=== PATIENT | female | born 1975 | race Caucasian/White ===

== ENCOUNTER → 2019-01-09 10:13 | Outpatient (CLI) | payer OTHER, SELFPAY ==
[2019-01-09 10:42] LABS: Basophils # 0.1 K/mm3 (0-0.2); Basophils % 0.7 % (0.1-2.0); Eosinophils % 0.4 % (0.1-12.0); Hematocrit 40.5 % (37.0-47.0); Hemoglobin 13.5 g/dL (12.2-16.2); Lymphocytes # 1.8 K/mm3 (0.7-4.5); Lymphocytes % 22.8 % (10-50); Mean Corpuscular HGB Conc 33.3 g/dL (31.8-35.4); Mean Corpuscular Hemoglobin 30.3 pg (27.0-31.2); Mean Corpuscular Volume 90.9 fl (81-99); Mean Platelet Volume 7.8 fl (7.4-10.4); Monocytes # 0.4 K/mm3 (0.1-1.0); Monocytes % 4.6 % (1.7-9.3); Neutrophils # 5.7 K/mm3 (1.8-7.8); Neutrophils % 71.4 % (37.0-80.0); Platelet Count 379 K/mm3 (142-424); Red Blood Count 4.46 M/mm3 (4.20-5.40); Red Cell Distribution Width 13.2 % (11.5-17.5); White Blood Count 7.9 K/mm3 (4.8-10.8)
[2019-01-09 11:10] LABS: Alanine Aminotransferase 19 U/L (12-78); Albumin Level 4.1 gm/dL (3.4-5.0); Albumin/Globulin Ratio 1.1 (1.1-1.8); Alkaline Phosphatase 54 U/L (46-116); Anion Gap 13.1 mEq/L (5-15); Aspartate Amino Transferase 10 U/L (15-37); Bilirubin,Total 0.5 mg/dL (0.2-1.0); Blood Urea Nitrogen 6 mg/dL (7-18); Carbon Dioxide 27 mmol/L (21.0-32.0); Chloride 104 mmol/L (98-107); Creatine Kinase 33 U/L (26-192); Creatinine,Serum 0.67 mg/dL (0.55-1.02); Estimated Glomerular Filt Rate 95 ml/min (>60); GFR (African American) 115 ML/MIN (>60); Globulin 3.8 gm/dl (1.3-3.2); Glucose 91 mg/dL (74-106); Potassium 4.1 mmoL/L (3.5-5.1); Sodium 140 mmol/L (136-145); Thyroid Stimulating Hormone 3.03 uIU/ml (0.358-3.740); Total Protein,Serum 7.9 gm/dL (6.4-8.2); Troponin I < 0.02 ng/ml (0.00-0.06)
[2019-01-09 11:14] LABS: CKMB Relative Index 1.5 U/L (0-4.0); Creatine Kinase MB < 0.5 ng/ml (0.0-3.6)
== END ==
PROVIDERS: PCP Family Medicine; Visit Provider Physician Assistant
DX: R07.9 Chest pain, unspecified (principal)
CPT/HCPCS: 36415; 80053; 82550; 82553; 84443; 84484; 85025; 93005; 93306

== ENCOUNTER → 2020-07-14 10:23 | Outpatient (CLI) | payer OTHER, SELFPAY ==
--- NOTE | 2020-07-14 10:29 | XR_ITS ---
PROCEDURE: XR SHOULDER RT MIN 2V CLINICAL INDICATION: RT SHOULDER PAIN COMPARISON: No exams were available for comparison FINDINGS: No fracture or dislocation. No lytic or blastic change. There is normal mineralization. The joint spaces are well-preserved. No significant degenerative/arthritic changes. No erosive changes evident. Other findings:None. IMPRESSION: No acute findings. Dictated by: Triston Garnett MD 07/14/2020 11:27 Triston Garnett MD in [place] 07/14/2020 11:27
--- NOTE | 2020-07-14 10:29 | XR_ITS ---
PROCEDURE: XR ELBOW RT MIN 3V CLINICAL INDICATION: RT ELBOW PAIN COMPARISON: No exams were available for comparison FINDINGS: No fracture or dislocation. No lytic or blastic change. There is normal mineralization. The joint spaces are well-preserved. No significant degenerative/arthritic changes. No erosive changes evident. Other findings:None. IMPRESSION: No acute findings. Dictated by: Triston Garnett MD 07/14/2020 11:27 Triston Garnett MD in [place] 07/14/2020 11:27
== END ==
PROVIDERS: PCP Family Medicine; Visit Provider Nurse Practitioner Family
DX: M25.511 Pain in right shoulder (principal); M25.521 Pain in right elbow
CPT/HCPCS: 73030; 73080

== ENCOUNTER → 2020-08-04 10:55 | Outpatient (CLI) | payer OTHER, SELFPAY ==
--- NOTE | 2020-08-04 10:58 | MR_ITS ---
PROCEDURE: MR SHOULDER RT WO CON CLINICAL INDICATION: RIGHT SHOULDER PAIN pt has been to physical therapy. pain when raising arm above head. ni injury. [id number]. weakness in arm. prior x-ray 07-14-20 COMPARISON: CR XR SHOULDER RT MIN 2V from 07/14/2020 TECHNIQUE: Routine multiplanar multi echo sequences are performed without gadolinium enhancement. FINDINGS: There is mild subacromial stenosis of 5 mm. No significant hypertrophy of the acromioclavicular joint. No evidence of rotator cuff tear. There is slight increased T2 signal the supraspinatus tendon distally which may be due to mild tendinopathy/tendinosis. The supraspinatus and infraspinatus are otherwise unremarkable as is the subscapularis and teres minor tendon. No obvious labral tear. The bicipital tendon is in place. There is some minimal subcortical increased T2 signal involving the humeral head posteriorly suggesting early subchondral cystic change. IMPRESSION: Mild subacromial stenosis with mild tendinopathy/tendinosis of the supraspinatus tendon. No evidence of rotator cuff tear or other significant anomaly. Suspect early subchondral cystic change in the humeral head posteriorly Dictated by: Triston Garnett MD 08/05/2020 12:35 Triston Garnett MD in [place] 08/05/2020 12:35
== END ==
PROVIDERS: PCP Family Medicine; Visit Provider Nurse Practitioner Family
DX: M25.511 Pain in right shoulder (principal)
CPT/HCPCS: 73221

== ENCOUNTER 2020-08-25 11:00 | Outpatient (RCR) | payer OTHER, SELFPAY ==
--- NOTE | 2020-07-26 16:08 | HMH.OTOPEV ---
OT Inpatient Evaluation Rehab OT Outpatient Eval Start: 07/26/20 15:45 Freq: Status: Active Protocol: Document 07/26/20 15:45 RMARSHALL (Rec: 07/26/20 15:59 RMARSHALL [id number]) Electronically Signed By Bc Sullivan OT 07/26/20 15:45 Outpatient Therapy Subjective History Subjective History Pt is a 45 year old female who reports to therapy for initial evaluation to right shoulder and elbow. Pt reports her shoulder and elbow began huritng her ~3 weeks ago. She does not recall a specific injury causing pain at both joints. Pt's AROM and strength are declined at right shoulder and special tests indicate possible shoulder impingement. Pt's AROM at elbow are WFL, but strength is declined. Pt does have palpation tenderness consistent with lateral epicondylitis. Pt is left hand dominant. Pt will continue to be seen twice a week in order to address all right UE deficits. STG Shoulder AROM Flex: 140 degrees Abd: 130 degrees ER: 80 degrees IR: 80 degrees Elbow AROM Sup: 75 degrees LTG Shoulder AROM Flex: 150 degrees Abd: 150 degrees ER: 90 degrees IR: 90 degrees Elbow Sup: 90 degrees Chief Complaint Pain,Stiff,Weakness,Decreased [employer]nerability Analyst Strength Symptom Type Ache,Throb,Sharp,Dull,Stabbing Symptoms Relieved By Rest/Positioning Symptoms Aggravated By Physical Activity,Twisting, Lifting Prior Functional Limitations None Current Functional Limitations Reaching,Lifting,Housework, Desk Work/Reading,Sleeping, Recreation Activity Symptom Description Constant but Variable Level of pain today (
== END 2020-08-25 11:55 | disposition home or self-care (01) ==
LOC: OT 11:00
PROVIDERS: Visit Provider Nurse Practitioner Family
DX: M25.511 Pain in right shoulder; M25.521 Pain in right elbow
CPT/HCPCS: 97014; 97033; 97035; 97110; 97140; 97165; G0283

== ENCOUNTER → 2021-08-21 19:02 | Outpatient (CLI) | payer OTHER, SELFPAY ==
--- NOTE | 2021-08-23 15:02 | PC.NURSE ---
pt. notified of positive result.
== END ==
PROVIDERS: Visit Provider Nurse Practitioner Family
DX: U07.1 COVID-19 (principal)
CPT/HCPCS: C9803; U0003; U0005

== ENCOUNTER 2023-01-30 14:08 | Emergency (ER) | payer BC, SELFPAY ==
--- NOTE | 2023-01-30 14:02 | ECG_ITS ---
APPROVED REPORT Exam: Resting ECG HR:73 bpm ECG Measurements Heart Rate 73 AXES IA 142 P 53 QRSd 85 QRS 60 QT 391 T 60 QTc 417 Conclusion SINUS RHYTHM LOW QRS VOLTAGE IN PRECORDIAL LEADS [QRS DEFLECTION < 1.0 mV IN CHEST LEADS] BORDERLINE ECG UNCONFIRMED REPORT Electronically signed by : Apolinar Davis MD 01/30/2023 22:02:38
--- NOTE | 2023-01-30 14:11 | XR_ITS ---
FINAL REPORT CLINICAL HISTORY: chest pain, pain between shoulder blades COMPARISON: 12/13/2019 FINDINGS: There is no evidence of effusion or other pleural disease. The mediastinum has a normal appearance. The cardiac silhouette is unremarkable. IMPRESSION: Unremarkable chest exam. Reviewed, Interpreted and Dictated by Vijay Schaffer MD Transcribed by Kelly Bazzi Authenticated and [facility]
--- NOTE | 2023-01-30 14:12 | CT_ITS ---
FINAL REPORT TECHNIQUE: Thin section axial CT with contrast with multiplanar reconstruction CLINICAL HISTORY: chest pain radiating to back FINDINGS: Pulmonary vessels enhance in a grossly normal fashion without evidence of embolism. Thoracic aorta shows no dissection or aneurysm. The great vessel origins are widely patent. No pulmonary mass or infiltrate is present. There is no significant pleural effusion. There is no significant pericardial effusion. No mediastinal or hilar adenopathy is present. IMPRESSION: 1. No evidence of pulmonary embolism Reviewed, Interpreted and Dictated by Vijay Schaffer MD Transcribed by Kelly Bazzi Authenticated and [facility]
[2023-01-30 14:14] VITALS: BP 132/67; PULSE 77; RESP 18; TEMP 36.8; O2SAT 99; BMI 27.4
[2023-01-30 14:31] LABS: Basophils # 0.1 K/mm3 (0-0.2); Basophils % 0.9 % (0.1-2.0); Eosinophils # 0.1 K/mm3 (0.0-0.4); Hemoglobin 14.3 g/dL (12.2-16.2); Lymphocytes # 2.6 K/mm3 (0.7-4.5); Lymphocytes % 32.3 % (10-50); Mean Corpuscular HGB Conc 32.4 g/dL (31.8-35.4); Mean Corpuscular Hemoglobin 30.4 pg (27.0-31.2); Mean Corpuscular Volume 93.7 fl (81-99); Mean Platelet Volume 8.6 fl (7.4-10.4); Monocytes # 0.5 K/mm3 (0.1-1.0); Monocytes % 5.8 % (1.7-9.3); Neutrophils # 4.8 K/mm3 (1.8-7.8); Platelet Count 405 K/mm3 (142-424); Red Blood Count 4.69 M/mm3 (4.20-5.40); Red Cell Distribution Width 13.1 % (11.5-17.5); White Blood Count 7.9 K/mm3 (4.8-10.8)
--- NOTE | 2023-01-30 14:44 | HMH.EDGENADL ---
Discharge Plan Disposition Patient Disposition: Home, Self-Care Condition: Good Prescriptions Prescriptions: No Action cholecalciferol (vitamin D3) 4,000 unit capsule 4,000 unit PO DAILY cyanocobalamin (vitamin B-12) [Vitamin B-12] 1,000 mcg tablet 1,000 mcg PO DAILY prednisone 20 mg tablet 20 mg PO BID 5 Days Qty: 10 0RF azithromycin 250 mg tablet 250 mg PO DIRECTED Qty: 6 0RF Rx Instructions: Take two (2) tablets on day #1, then one (1) tablet day #2 thru #5 Referrals Follow up/Referrals: Provider,Referral, MD [Referring] - See instructions Activity Restrictions/Add. Instructions Additional Instructions/Restrictions: You were evaluated in the emergency department today. Please follow-up with your primary care provider over the next 48 hours. Return to the emergency department for any new or worsening symptoms. Take Tylenol and ibuprofen at home as needed for pain. Clinical Impressions Clinical Impression: Back pain Qualifiers: Back pain location: thoracic back pain Chronicity: acute Back pain laterality: bilateral Qualified Code(s): M54.6 - Pain in thoracic spine Chest pain Qualifiers: Chest pain type: unspecified Qualified Code(s): R07.9 - Chest pain, unspecified Stand Alone Forms Stand Alone Forms: Work/School Release Instructions Patient Instructions: DI for Atypical Chest Pain, DI for Thoracic Back Pain Discharge ED Provider: Mayuri Jarrell General Adult HPI General Chief complaint: Chest Pain Stated complaint: chest pain Time Seen by Provider: 01/30/23 14:11 Mode of Arrival: Wheelchair Source of Information: Patient Limitations: No Limitations Description of Symptoms (Recalled from ER Triage Doc. by RN): pt comes in with c/o chest pain that comes and goes, began last night. pt reports that she does have pain in between shoulder blades, and generalized rib cage. shoulder blade and rib cage pain are constant. History of Present Illness HPI narrative: This patient is a 47-year-old female who has extensive smoking history and chronic cough presenting to the emergency department for evaluation with concern for chest pain that radiates to her back between her shoulder blades. She states that it is worse with coughing. It is relieved with sitting forward. She states that she is experiencing like this in the past and was told it is costochondritis. Her pain has been there for 48 hours now with no improvement. Given this, she came in for further evaluation. No fevers, chills, shortness of breath, abdominal pain, nausea, vomiting, changes in bowel movements, numbness, tingling, or other concerns. She does note that she feels lightheaded on review of systems. Related Data Home Medications Medication Instructions Recorded Confirmed cholecalciferol (vitamin D3) 100 4,000 unit PO DAILY Supplement 06/25/18 12/13/19 mcg (4,000 unit) capsule cyanocobalamin (vitamin B-12) 1,000 mcg PO DAILY Supplement 06/25/18 12/13/19 1,000 mcg tablet (Vitamin B-12) Previous Rx's Medication Instructions Recorded prednisone 20 mg tablet 20 mg PO BID 5 days #10 tabs 08/21/21 azithromycin 250 mg tablet 250 mg PO DIRECTED #6 tabs 10/11/21 Allergies Allergy/AdvReac Type Severity Reaction Status Date / Time Penicillins [PENICILLINS] Allergy Unknown Verified 12/13/19 13:32 [facility] Disclaimer: The information contained in this section may have been updated after the patient was seen, as this information can be updated by other users. Social History Smoking Status: Current every day smoker alcohol intake: never current occupational status: employed Travel in the last 8 weeks: None ROS Obtained: Yes All systems reviewed & no additional complaints except as documented 14 point review of systems obtained and negative except as mentioned in HPI. Physical Exam General General appearance: alert and in no debo
[2023-01-30 15:00] VITALS: BP 103/75; PULSE 74; RESP 14; O2SAT 97
--- NOTE | 2023-01-30 15:27 | PC.NURSE ---
chest CTA is locked per medical administrative technician
[2023-01-30 15:28] LABS: Chloride 102 mmol/L (98-107); Sodium 140 mmol/L (136-145)
[2023-01-30 15:30] VITALS: BP 103/67; PULSE 69; O2SAT 97
[2023-01-30 15:31] LABS: Alanine Aminotransferase 21 U/L (12-78); Albumin Level 4.5 g/dl (3.5-5.0); Albumin/Globulin Ratio 1.4 (1.1-1.8); Alkaline Phosphatase 70 U/L (38-126); Aspartate Amino Transferase 29 U/L (14-36); Bilirubin,Total 0.4 mg/dl (0.2-1.3); Blood Urea Nitrogen 5 mg/dl (7-17); Carbon Dioxide 28 mmol/L (22.0-30.0); Creatinine Clearance Estimated 111 mL/min (50-200); Estimated Glomerular Filt Rate 89 ml/min (>60); GFR (African American) 108 ML/MIN (>60); Globulin 3.3 g/dL (1.3-3.2); Total Protein,Serum 7.8 g/dl (6.3-8.2)
[2023-01-30 15:32] LABS: Calcium 9.3 mg/dl (8.4-10.2); Glucose 91 mg/dl (74-100)
[2023-01-30 15:52] LABS: Troponin I < 0.01 ng/ml (0.00-0.034)
[2023-01-30 16:00] VITALS: BP 112/67; PULSE 70; O2SAT 98
--- NOTE | 2023-01-30 16:09 | PC.NURSE ---
rounded on pt no complaints at this time, family at bs
[2023-01-30 16:55] LABS: Troponin I < 0.01 ng/ml (0.00-0.034)
[2023-01-30 17:20] VITALS: BP 112/67; PULSE 70; RESP 17; TEMP 36.7
== END 2023-01-30 17:28 | disposition home or self-care (01) ==
PROVIDERS: Emergency Provider Emergency Medicine; PCP Family Medicine
DX: R07.9 Chest pain, unspecified (principal); M54.6 Pain in thoracic spine; F17.200 Nicotine dependence, unspecified, uncomplicated
CPT/HCPCS: 71046; 71275; 80053; 84484; 85025; 93005; 96374; 99285; Q9967

== ENCOUNTER → 2023-08-27 14:00 | Outpatient (CLI) | payer BC, SELFPAY ==
--- NOTE | 2023-08-27 14:10 | MM_ITS ---
PROCEDURE INFORMATION: Exam: Bilateral Screening 3D Mammography Exam date and time: 08/27/2023 2:01 PM Age: 48 years old Clinical indication: Screening examination TECHNIQUE: Imaging protocol: Bilateral Screening tomosynthesis and 2D mammography including computer-aided detection (CAD) when performed. COMPARISON: No relevant prior studies available. FINDINGS: MAMMOGRAPHY: Breast composition: The breasts are heterogeneously dense, which may obscure small masses. Mass: None. Architectural distortion: None. Calcifications: No suspicious calcifications. Asymmetric density: None. Skin thickening: None. Axillary adenopathy: None. IMPRESSION: No mammographic evidence of malignancy. Annual screening is recommended unless otherwise clinically indicated. ASSESSMENT: BI-RADS Category 1: Negative
== END ==
PROVIDERS: PCP Family Medicine; Visit Provider Nurse Practitioner Family
DX: Z12.31 Encounter for screening mammogram for malignant neoplasm of breast (principal)
CPT/HCPCS: 77063; 77067

== ENCOUNTER 2023-09-07 10:18 | Emergency (ER) | payer BC, SELFPAY ==
[2023-09-07] VITALS (8 sets, daily range): BP systolic 98–132; BP diastolic 62–81; PULSE 67–79; RESP 14–18; TEMP 36.7; O2SAT 96–98; BMI 27.9
--- NOTE | 2023-09-07 10:18 | ECG_ITS ---
APPROVED REPORT Exam: Resting ECG HR:71 bpm ECG Measurements Heart Rate 71 AXES WV 144 P 53 QRSd 77 QRS 64 QT 384 T 70 QTc 407 Conclusion SINUS RHYTHM NORMAL ECG UNCONFIRMED REPORT Electronically signed by : Apolinar Davis MD 09/07/2023 14:41:14
--- NOTE | 2023-09-07 10:40 | XR_ITS ---
FINAL REPORT CLINICAL HISTORY: chest pain/discomfort smoker (unknown for how long) COMPARISON: 01/30/2023 FINDINGS: 2 views of the chest were obtained . The heart is normal in size. The mediastinum is within normal limits. The lungs are clear. There is no pneumothorax. Osseous structures are unremarkable. IMPRESSION: No acute cardiopulmonary process. Reviewed, Interpreted and Dictated by Elliot Duffy MD Transcribed by Joy Valdovinos Authenticated and [facility]
--- NOTE | 2023-09-07 10:49 | HMH.EDGENADL ---
Discharge Plan Disposition Patient Disposition: Home, Self-Care Condition: Good Prescriptions Prescriptions: New methocarbamol 500 mg tablet 500 mg PO Q6H Qty: 20 0RF No Action paroxetine HCl 10 mg tablet 10 mg PO DAILY Patient Comments: TAKE 1 TABLET BY MOUTH ONCE DAILY fluticasone propionate 50 mcg/actuation spray,suspension 1 spray INTRANASAL DAILY Patient Comments: USE 1 SPRAY(S) IN EACH NOSTRIL ONCE DAILY Referrals Follow up/Referrals: Pam Lester APRN [Primary Care Provider] - See instructions Activity Restrictions/Add. Instructions Additional Instructions/Restrictions: Please follow-up with your primary care provider. Please return to the emergency department if you develop any new or worsening symptoms or become concerned for your health. As we discussed, you can continue to take Tylenol, ibuprofen as needed every 6 hours. You have also been given a prescription for Robaxin, please use this as directed. Clinical Impressions Clinical Impression: COVID-19 virus infection Chest pain Qualifiers: Chest pain type: intercostal pain Qualified Code(s): R07.82 - Intercostal pain Discharge ED Provider: Hunter Huggins I General Adult HPI General Chief complaint: Chest Pain Stated complaint: CP Time Seen by Provider: 09/07/23 10:21 Mode of Arrival: Family Vehicle Source of Information: Patient Limitations: No Limitations Description of Symptoms (Recalled from ER Triage Doc. by RN): Pt c/o R sided chest pain that radiates to her mid-upper back. States the pain began this morning. She tested positive for Covid last week at her work. She was due to be re-tested today and here PCP referred her to the ER. History of Present Illness HPI narrative: Patient is a 48-year-old female with significant smoking history presenting to the emergency department with new onset chest pain this morning. History was conducted with the patient at bedside. She reports that for her job, she has routine COVID testing. She did test positive for COVID on Sunday. However, she has been asymptomatic up until this morning. She then reports that at approximately 6 AM, she started to have a uncomfortable feeling in the middle of her chest that radiates through to her back. She denies any ripping or tearing sensation but does report that the pain waxes and wanes. She also reports that occasionally, she feels short of breath when the pain worsens, but does not have any current shortness of breath at the time of my evaluation. She denies cough, congestion, runny nose, fever, chills, nausea, vomiting, abdominal pain, paresthesias, focal weakness. Also denies recent falls, injuries. Does not have any unilateral leg swelling, no history of long flights, travel, no history of blood clots. Patient took ibuprofen at home prior to arriving in the emergency department. Patient does state that she was previously evaluated in the emergency department for similar symptoms in January, had CTA imaging of the chest performed of the chest at that time that was ultimately unremarkable. Related Data Home Medications Medication Instructions Recorded Confirmed fluticasone propionate 50 1 spray intranasal DAILY 09/07/23 09/07/23 mcg/actuation nasal spray,suspension paroxetine HCl 10 mg tablet 10 mg PO DAILY 09/07/23 09/07/23 Previous Rx's Medication Instructions Recorded methocarbamol 500 mg tablet 500 mg PO Q6H #20 tabs 09/07/23 Allergies Allergy/AdvReac Type Severity Reaction Status Date / Time Penicillins [PENICILLINS] Allergy Unknown unknown Verified 09/07/23 10:35 [facility] Disclaimer: The information contained in this section may have been updated after the patient was seen, as this information can be updated by other users. Social History (Updated 01/30/23 @ 20:05 by Mayuri Jarrell DO) Smoking Status: Current every day smoker alcohol intake: never current occupational status: employed Travel
[2023-09-07 10:57] LABS: Basophils # 0.1 K/mm3 (0-0.2); Basophils % 1.3 % (0.1-2.0); Eosinophils # 0.2 K/mm3 (0.0-0.4); Hemoglobin 15.1 g/dL (12.2-16.2); Lymphocytes # 2.3 K/mm3 (0.7-4.5); Lymphocytes % 30.7 % (10-50); Mean Corpuscular HGB Conc 32.8 g/dL (31.8-35.4); Mean Corpuscular Hemoglobin 30.8 pg (27.0-31.2); Mean Corpuscular Volume 94.2 fl (81-99); Mean Platelet Volume 8.7 fl (7.4-10.4); Monocytes # 0.3 K/mm3 (0.1-1.0); Monocytes % 4.2 % (1.7-9.3); Neutrophils # 4.7 K/mm3 (1.8-7.8); Neutrophils % 61.8 % (37.0-80.0); Platelet Count 427 K/mm3 (142-424); Red Blood Count 4.88 M/mm3 (4.20-5.40); Red Cell Distribution Width 13.2 % (11.5-17.5); White Blood Count 7.5 K/mm3 (4.8-10.8)
[2023-09-07 11:01] LABS: Alanine Aminotransferase 27 U/L (12-78); Aspartate Amino Transferase 28 U/L (14-36); Blood Urea Nitrogen 8 mg/dl (7-17); Calcium 9.5 mg/dl (8.4-10.2); Carbon Dioxide 28 mmol/L (22.0-30.0); Chloride 105 mmol/L (98-107); Creatinine Clearance Estimated 116 mL/min (50-200); Estimated Glomerular Filt Rate 89 ml/min (>60); GFR (African American) 107 ML/MIN (>60); Glucose 84 mg/dl (74-100)
[2023-09-07 11:03] LABS: Albumin Level 4.7 g/dl (3.5-5.0); Albumin/Globulin Ratio 1.3 (1.1-1.8); Alkaline Phosphatase 69 U/L (38-126); Bilirubin,Total 0.4 mg/dl (0.2-1.3); Globulin 3.7 g/dL (1.3-3.2); Sodium 140 mmol/L (136-145); Total Protein,Serum 8.4 g/dl (6.3-8.2)
[2023-09-07 11:06] LABS: D-Dimer < 0.25 ug/mL (0.0-0.5)
[2023-09-07 11:18] LABS: Troponin I < 0.01 ng/ml (0.00-0.034)
--- NOTE | 2023-09-07 12:39 | PC.NURSE ---
DR MANCILLA AT BEDSIDE TO UPDATE PT AND FAMILY
[2023-09-07 12:57] LABS: Influenza A, PCR Not Detected (NotDetected); Influenza B, PCR Not Detected (NotDetected)
[2023-09-07 13:28] LABS: Troponin I < 0.01 ng/ml (0.00-0.034)
[2023-09-07 13:37] LABS: Coronavirus 19, PCR Detected (NotDetected)
== END 2023-09-07 13:50 | disposition home or self-care (01) ==
PROVIDERS: Emergency Provider Emergency Medicine; PCP Nurse Practitioner Family
DX: U07.1 COVID-19 (principal); R07.82 Intercostal pain; M54.6 Pain in thoracic spine; F17.200 Nicotine dependence, unspecified, uncomplicated
CPT/HCPCS: 71046; 80053; 84484; 85025; 85378; 87636; 93005; 96374; 99285

== ENCOUNTER 2025-03-02 08:57 | Outpatient (CLI) | payer BC, SELFPAY ==
--- OUTSIDE RECORDS SUMMARY | 2025-03-02 09:03 | XMS_ITS | Continuity of Care Document ---
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 Plan of Treatment Reminders Order Date Submit Date Provider Last Modified By Organization Details Last Modified Time Details Appointments Nurse Visit 20 2024 08:00A M Nurse-William chacko Not available Not available Not available Lab TSH + free T4, serum 2024 025 [facility], [address], [address], [place], [address], 02/26/2025 16:49:28 CMP, serum or plasma 2024 025 [facility], [address], [place], [place], [address], 02/26/2025 16:49:30 CBC w/ auto diff 2024 025 [facility], [address], [place], [place], [address], 02/26/2025 16:49:28 HbA1c (hemoglob in A1c), blood 2024 025 [facility], [address], [place], [place], [address], 02/26/2025 16:49:27 magnesium , serum or plasma 2024 025 [facility], [address], [place], [place], [address], 02/26/2025 16:49:29 vitamin D, 25-hydrox y, total, serum 2024 025 [facility], [address], [place], [place], [address], 02/26/2025 16:49:30 vitamin B12, serum 2024 025 [facility], [address], [place], [place], [address], 02/26/2025 16:49:28 rf (rheumato id factor), serum 2024 025 [facility], [address], [place], [place], [address], 02/26/2025 16:49:29 C reactive protein, QN, serum or plasma 2024 025 [facility], [address], [place], [place], [address], 02/26/2025 16:49:29 ESR (erythroc yte sedimenta tion rate), blood 2024 025 [facility], [address], [place], [place], [address], 02/26/2025 16:49:29 sjogren antibody panel (ssa, ssb, ro, la), serum 2024 025 [facility], [address], [place], [place], [address], 02/26/2025 16:49:29 ccp (cyclic citrullin ated peptide) iga+igg, serum 2024 025 [facility], [address], [place], [place], [address], 02/26/2025 16:49:29 dsDNA Ab, serum 2024 025 [facility], [address], [place], [place], [address], 02/26/2025 16:49:29 AMINA (antinucl ear antibodie s) screen, serum 2024 025 [facility], [address], [place], [place], [address], 02/26/2025 16:49:29 Referral cardiolog ist referral 2024 025 [facility] Estuardo Berger MD, [address], [place], [address], 02/26/2025 18:22:40 Procedures None recorded. Surgeries None recorded. Imaging holter monitor - 7 day 2024 025 [facility] (Scheduling), [address], [place], [address], 02/26/2025 17:00:00 XR, chest, 2 view 2024 025 [facility] (X-Ray), [address], [place], [place], [address], 02/26/2025 17:47:51 Medication Orders loratadin e 10 mg tablet 2024 025 [facility], [address] [facility] [place], [address], 02/26/2025 16:52:22 fluticaso ne propionat e 50 mcg/actua tion nasal spray,bhaskar pension 2024 025 [facility], [address] [place], [address], 02/26/2025 16:52:20 Zepbound 2.5 mg/0.5 mL subcutane ous pen injector 2024 025 [facility] [address], [place], [address], 02/26/2025 16:51:24 Patient TargetsNo targets recorded. Patient InstructionsNo instructions recorded. 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 Procedures Surgical History Date Name Laterality Status Provider Name and Address Organization Details Recorded Time 08/27/20 23 Date of Last Mammogram completed Leesa Shi [place] - [facility] 08/31/2023 09:47:32 05/25/20 21 Date of Last Pap Smear completed Shelbie Camargo [place] - [facility] 05/26/2022 14:41:53 section completed Carmen Contreras [place] - [facility] 07/01/2019 14:51:27 section completed Carmen Contreras [place] - [facility] 07/01/2019 14:51:29 procedure on wrist completed Carmen Contreras [place] - [facility] 07/01/2019 14:51:41 procedure on lymph node completed Carmen Contreras [place] - [facility] 07/01/2019 14:51:59 lithotripsy completed Carmen CARRAN[place] - [facility] 07/01/2019 14:52:04 Unlisted px dentalvlr strux completed Carmen Contreras [place] - [facility] 07/01/20 19 14:52:10 Imaging Results None recorded. Procedure Notes None recorded. Medical Equipment None Reported. Allergies Allergen ID Allergen Name Allergen Category Reaction Reaction Severity Criticality Documentation Date Start Date Code Code System Note Provider Name and Address Organization Details Recorded Time 844897 Product containin g penicilli n (product) medicatio n encephali tis moderate high 07/01/2019 50896 6421 SNOMED Shelbie Camargo null, [place] - [facility] 14:40:41 Medications Name Sig Start Date Stop Date Status Note LastModified by Organization Details LastModified Time paroxetine 10 mg tablet TAKE 1 TABLET BY MOUTH ONCE DAILY 02/26 completed Not Available Not Available Not Available prednisone 20 mg tablet Take 1 tablet twice a day by oral route as directed for 5 days. 02/26 completed Not Available Not Available Not Available Zithromax Z-Sharath 250 mg tablet TAKE 2 TABLETS (500 MG) BY ORAL ROUTE ONCE DAILY FOR 1 DAY THEN 1 TABLET (250 MG) BY ORAL ROUTE ONCE DAILY FOR 4 DAYS 02/26 completed Not Available Not Available Not Available cephalexin 500 mg capsule TAKE 1 CAPSULE BY MOUTH TWICE DAILY FOR 10 DAYS 10/16 completed Not Available Not Available Not Available ergocalcife rol (vitamin D2) 1,250 mcg (50,000 unit) capsule TAKE 1 CAPSULE BY MOUTH ONCE A WEEK active Not Available Not Available No t Available dexamethaso ne sodium phosphate 4 mg/mL injection solution Inject 1 mL as needed by intramusc ular route. 10/16 completed Not Available Not Available Not Available cefdinir 300 mg capsule Take 1 capsule every 12 hours by oral route for 7 days. 10/26 completed Not Available Not Available Not Available fluticasone propionate 50 mcg/actuati on nasal spray,suspe nsion Kingsley 1 spray every day by intranasa l route. 2024 active Not Available Not Available Not Avai lable loratadine 10 mg tablet Take 1 tablet every day by oral route. 2024 active Not Available Not Available Not Avai lable Loestrin Fe 1.5/30 (28-Day) 1.5 mg-30 mcg (21)/75 mg (7) tablet Take 1 tablet every day by oral route. 05/26 completed Not Available Not Available Not Available Ventolin HFA 90 mcg/actuati on aerosol inhaler INHALE 1 PUFF BY MOUTH EVERY 4 HOURS NEEDED 2024 active Not Available Not Available Not Avai lable Zepbound 2.5 mg/0.5 mL subcutaneou s pen injector active Not Available Not Available Not Available Vitals Date Recorded Body weight Heart rate Oxygen saturation Oxygen saturation in Arterial blood by Pulse oximetry Respiratory rate Systolic blood pressure Diastolic blood pressure Provider Name and Address Organization Details Last Updated DateTime 5 48323.8 5 g 88 /min 98 % 98 % 18 /min 118 mm[Hg] 64 mm[Hg] Shelbie Raman [place] - [facility] 5 16:22:41 Social History Question Answer Notes LastModified by Organizat ion Details LastModified Time Tobacco Smoking Status Current Every Day Smoker Carmen lawson, [place] - [facility] 07/01/2019 14:49:39 Do You Have An Advance Directive? No [email or web address] Information not available 07/01/2019 Are You Blind Or Do You Have Difficulty Seeing? No [email or web address] Information not available 07/01/2019 Is Blood Transfusion Acceptable In An Emergency? Yes Information not available 07/01/2019 What Is Your Level Of Caffeine Consumption? Occasional [email or web address] Information not available 07/01/2019 How Much Tobacco Do You Chew? None [email or web address] Information not available 07/01/2019 In The 14 Days Before Symptom Onset, Have You Had Close Contact With A Laboratory-confir med COVID-19 While That Case Was Ill? No Information not available 08/06/2023 In The 14 Days Before Symptom Onset, Have You Had Close Contact With A Person Who Is Under Investigation For COVID-19 While That Person Was Ill? No Information not available 08/06/2023 Have You Been To An Area Known To Be High Risk For COVID-19? No Information not available 08/06/2023 Are You Deaf Or Do You Have Serious Difficulty Hearing? No [email or web address] Information not available 07/01/2019 What Type Of Diet Are You Following? REGULAR [email or web address] Information not available 07/01/2019 Which Illicit Or Recreational Drugs Have You Used? None Information not available 07/01/2019 Have You Processed Blood Or Body Fluids From An Ebola Virus Disease Patient Without Appropriate PPE? No Information not available 08/06/2023 Do You Reside In Or Have You Traveled To An Area Where Ebola Virus Transmission Is Active? No Information not available 08/06/2023 What Is The Highest Grade Or Level Of School You Have Completed Or The Highest Degree You Have Received? [id number] [email or web address] Information not available 07/01/2019 How Many Days Of Moderate To Strenuous Exercise, Like A Brisk Walk, Did You Do In The Last 7 Days? 1 [email or web address] Information not available 07/01/2019 On Those Days That You Engage In Moderate To Strenuous Exercise, How Many Minutes, On Average, Do You Exercise? 1 [email or web address] Information not available 07/01/2019 Have There Been Any Changes To Your Family Or Social Situation? No Information no t available 10/26/2022 How Hard Is It For You To Pay For The Very Basics Like Food, Housing, Medical Care, And Heating? 1 [email or web address] Information not available 07/01/2019 What Is The Fluoride Status Of Your Home? Unknown Information not available 10/26/2022 Have You Recently Or Are You Planning To Travel To An Area With Zika Virus? No Information not available 08/06/2023 Live Alone Or With Others? With Others [email or web address] Information not available 07/01/2019 Do You Have A Medical Power Of Special Projects Coordinator? No Information not available 10/26/2022 What Was The Date Of Your Most Recent Tobacco Screening? 02/26/2025 Information not available 02/26/2025 How Many Children Do You Have? 2 [email or web address] Information not available 07/01/2019 What Is Your Current Pack Years? [email or web address] Information not available 10/26/2022 Performs Monthly Self-breast Exam? Yes Information no t available 07/01/2019 What Is Your Relationship Status? [email or web address] Information not available 07/01/2019 Seat Belts Used Routinely Yes [email or web address] Information not available 07/01/2019 Are You Sexually Active? Yes [email or web address] Information not available 07/01/2019 Do You Have Smoke And Carbon Monoxide Detectors In Your Home? Yes Information not available 10/26/2022 At What Age Did You Start Smoking Tobacco? 13 Information not available 10/26/2022 How Much Tobacco Do You Smoke? 1 PPD Information not available 07/01/2019 Do You Use Sunscreen Routinely? Yes [email or web address] Information not available 07/01/2019 How Many Years Have You Smoked Tobacco? 34 Information not available 10/26/2022 Do You Have Difficulty Walking Or Climbing Stairs? No [email or web address] Information not available 07/01/2019 Sex: Female Functional Status Question Answer Note LastModified by Organizat ion Details LastModified Time How many times per week do you consume alcohol? 1-2 times per week Information not available 10/26/2022 Do you use any illicit or recreational drugs? No Information not available 10/26/2022 Do you or have you ever used any other forms of tobacco or nicotine? No Information not available 10/26/2022 What is your level of alcohol consumption? Occasional [email or web address] Information not available 07/01/2019 Are you currently employed? Yes [email or web address] Information not available 07/01/2019 Do you have transportation difficulties? No Information not available 10/26/2022 Are you able to walk? YESWOREST [email or web address] Information not available 07/01/2019 Do you have difficulty doing errands alone? No [email or web address] Information not available 07/01/2019 Are you able to care for yourself? 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 No [email or web address] Information not available 07/01/2019 What is your exercise level? None Information not available 07/01/2019 Mental Status Question Answer Note LastModified by Organization D etails LastModified Time Do you feel stressed (tense, restless, nervous, or anxious, or unable to sleep at night)? 1 [email or web address] Information not available 07/01/2019 Do you have difficulty concentrating, remembering or making decisions? No [email or web address] Information no t available 07/01/2019 Family History Relationship Description Onset Age of this Age Resolved Age Notes LastModified by Organization Details LastModified Time Mother Malignant tumor of breast [email or web address] Not available 2018 14:48:41 Mother Hypertensive disorder [email or web address] Not available 2018 14:48:54 Maternal Grandmother Diabetes mellitus [email or web address] Not available 2018 14:49:12 Father Cerebrovascu lar accident [email or web address] Not available 04/2019 14:49:27 Medical History Condition Response Pancreatitis N Other N Atrial Fibrillation N congenital heart disease N Blood Diseases N Hyperthyroidism N Rheumatoid arthritis N Blood Transfusion N Erectile Dysfunction N amputation N Skin Lesions N Depression N Pneumonia N Incontinence N Murmur N Edema N Alzheimer's Disease N Migraine Headaches N Tobacco Abuse N Anxiety Disorder N Hemorrhoids N Obesity N Vision or Eye Problems N Arthritis N Restless Leg Syndrome N Polyps N Infertility N Carpal Tunnel N Acid Reflux (GERD) N Cancer N Varicosities N Stroke N Tendonitis N Crohn's Disease N Hypercholesterolemia N Skin Cancer N Headaches N Fibromyalgia N Irritable Bowel Syndrome N Anal Fissure N Kidney Disease N Heart Problems N Hospitalizations N Gallstones N Kidney or Bladder Problems N Goiter N Acne N Eating Disorder N Beavers's Esophagus N Hypertriglyceridemia N Constipation N Embolism N Vitamin B12 Deficiency N Deviated Septum N AIDS/HIV N Myocardial Infarction N Asthma N Mitral Valve Disorders N Vertigo N Hepatitis N Thyroid Cancer N Neuropathy N History of DVT N Herniated Disc N Chicken Pox N Von Willebrands Disease N Thrombophilias N Breast Cancer N Hernia N Plantar Fasciitis N Hypothyroidism N Lung Disease N Defects or Inherited Disease N Breast Problem N Ovarian Cyst N Anesthesia Complications N Testosterone Deficiency N Interstitial Cystitis N Congenital Anomalies N Hypoglycemia N Blood clot N Vitamin D Deficiency N Cellulitis N Endometriosis N Bladder or Kidney Problems N Fracture N Panic Disorder N Schizophrenia N Concussion N Spina Bifida N Osteoarthritis N Parkinson's Disease N Disc Protrusion N STI N Esophagitis N Angina N Thyroid Problems N GI Problems N ADD/ADHD N Anemia N Multiple Sclerosis N Abnormal PAP N Lumbago N Mental Illness N Psychiatric Illness N Diabetes N Ovarian Cancer N Degenerative Disc Disease N Seizures/Epilepsy N Hyperlipidemia N Syncope N Insomnia N Eczema N Abuse/Domestic Violence N Attention Deficient Disorder N Dementia N Ulcerative colitis N Cerebrovascular Disease N Depression N Guillain-P[place]enix N Sleep Apnea N Aneurysm N Bronchitis N Heart Disease N Hypertension N Pre-Eclampsia N Suicidal Ideation N Osteoporosis N Gynecological History Statement/Question Response Abnormal Pap N Flow Moderate Date of Last Mammogram 08/27/2023 Date of LMP 11/26/2023 Current Control Method None Age at Menarche 11 Date of Last Colonoscopy Frequency of Cycle (Q days) Most Recent Bone Density Sexually Active? Y Menses Monthly Y Date of Last Pap Smear 05/25/2021 Sexual Problems? Y LMP Approximate Obstetrics History GPAL:G 2 P 2 0 0 2 Type Value Full Term 2 Living 2 Total 2 Immunizations Vaccine Type Date Status Note Provider Nam e and Address Organization Details Recorded Time Hep B, adult 11/15/1998 completed Shelbie Camargo null, [place] - [facility] 08/11/2022 14:01:24 COVID-19, mRNA, LNP-S, bivalent, PF, 30 mcg/0.3 mL dose 06/26/2022 completed Shelbie Acevedoler null, [place] - [facility] 08/11/2022 14:01:24 COVID-19, mRNA, LNP-S, PF, 30 mcg/0.3 mL dose 10/11/2020 completed Shelbie Camargo [place], [place] - [facility] 08/11/2022 14:01:24 COVID-19, mRNA, LNP-S, PF, 30 mcg/0.3 mL dose 11/01/2020 completed Shelbie Camargo null, [place] - [facility] 08/11/2022 14:01:24 Past Encounters Encounter ID Performer Location Encounter Start Date Encounter Closed Date Diagnosis/Indication Diagnosis SNOMED-CT Code Diagnosis ICD10 Code Diagnosis Note [id number] Pam Lester APRN [address] [address] 02/26/2025 16:04:46 02/26/2025 16:49:48 Palpitations 06355755 R00.2 Pain of mu ltiple joints 50758020 M25.50 Numbness of face 2823711 09 R20.0 Obesity 616080158 E66.9 Dyspnea 716716318 R06.02 Seasonal allergy 4866767 04 J30.2 Health Concerns Section Related Observation LastModified by Organization Detai ls LastModified Time None Recorded Concern Status LastModified by Organization Details LastModified Time None Recorded Payers Encounter Date Sequence Insurance Name Policy Number Policy Lara Covered Member ID Lara Member ID Guarantor Name 02/26/2025 1 [employer] [id number] 1 Ryan Monte [id number] AB Jaimee Monte Notes Date Note Type Note Provider Name and Address Organization Details Recorded Time 02/26/2025 text/html 49 yr old female presents with joint pain, allergies, rapid heartbeat/palpi tations,sob hot flashes and weight gain.reports mom had a fib, smoker for over 30 yrs, face feels numb when she has hot flashes. denies cpwants to try zepbound Pam Lester, NEONATAL CRITICAL CARE NURSE [address], [place], [address], [place] - [facility] 02/26/2025 16:54:43 OBGyn Episode No OBEpisode recorded.
--- OUTSIDE RECORDS SUMMARY | 2025-03-02 09:03 | XMS_ITS | Data Portability ---
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 Plan of Treatment Reminders Order Date Submit Date Provider Last Modified By Organization Details Last Modified Time Details Appointments Nurse Visit 20 2024 08:00A M Nurse-William chacko Not available Not available Not available Lab TSH + free T4, serum 2024 025 [facility], [address], [address], [place], [address], 02/26/2025 16:49:28 CMP, serum or plasma 2024 025 [facility], [address], [address] [address], [place], [address], 02/26/2025 16:49:30 CBC w/ auto diff 2024 025 [facility], [address], [address], [place], [address], 02/26/2025 16:49:28 HbA1c (hemoglob in A1c), blood 2024 025 [facility]Z [facility], [address], [address], [place], [address], 02/26/2025 16:49:27 magnesium , serum or plasma 2024 025 [facility], [address], [address], [place], [address], 02/26/2025 16:49:29 vitamin D, 25-hydrox y, total, serum 2024 025 [facility], [address], [address], [place], [address], 02/26/2025 16:49:30 vitamin B12, serum 2024 025 [facility], [address], [address], [place], [address], 02/26/2025 16:49:28 rf (rheumato id factor), serum 2024 025 [facility], [address], [address] [address], [place], [address], 02/26/2025 16:49:29 C reactive protein, QN, serum or plasma 2024 025 [facility], [address], [address], [place], [address], 02/26/2025 16:49:29 ESR (erythroc yte sedimenta tion rate), blood 2024 025 [facility], [address], [address], [place], [address], 02/26/2025 16:49:29 sjogren antibody panel (ssa, ssb, ro, la), serum 2024 025 [facility], [address], [address], [place], [address], 02/26/2025 16:49:29 ccp (cyclic citrullin ated peptide) iga+igg, serum 2024 025 [facility], [address], [address], [place], [address], 02/26/2025 16:49:29 dsDNA Ab, serum 2024 025 [facility], [address], [address], [place], [address], 02/26/2025 16:49:29 AMINA (antinucl ear antibodie s) screen, serum 2024 025 [facility], [address], [address], [place], [address], 02/26/2025 16:49:29 rapid flu (A+B) 2023 024 [facility], [address] [facility] [facility], [place], [address], 10/16/2023 14:19:25 Referral cardiolog ist referral 2024 025 [facility] Estuardo Berger MD, [address], [place], [address], 02/26/2025 18:22:40 Procedures venipunct ure routine (PROC) 2023 024 [email or web address] Not available 01/17/2024 08:00:15 Surgeries None recorded. Imaging holter monitor - 7 day 2024 025 [facility] (Scheduling), [address], [place], [address], 02/26/2025 17:00:00 XR, chest, 2 view 2024 025 [facility] (X-Ray), [address], [place], [address], 02/26/2025 17:47:51 Medication Orders loratadin e 10 mg tablet 2024 025 [facility], [address], [place], [address], 02/26/2025 16:52:22 fluticaso ne propionat e 50 mcg/actua tion nasal spray,bhaskar pension 2024 025 [facility], [address], [address], 02/26/2025 16:52:20 Zepbound 2.5 mg/0.5 mL subcutane ous pen injector 2024 025 [facility], [address], [address], 02/26/2025 16:51:24 Zithromax Z-Sharath 250 mg tablet 2023 024 [facility], [address], [address], 02/26/2025 16:19:47 prednison e 20 mg tablet 2023 024 [facility], [address], [address], 02/26/2025 16:19:44 albuterol sulfate HFA 90 mcg/actua tion aerosol inhaler 2023 024 [facility], [address], [address], 02/25/2024 16:50:50 Zithromax Z-Sharath 250 mg tablet 2023 024 [facility], [address], [address], 02/26/2025 16:19:47 prednison e 20 mg tablet 2023 024 [facility], [address], [address], 02/26/2025 16:19:44 dexametha sone sodium phosphate 4 mg/mL injection solution 2022 023 [email or web address] Not available 10/16/2023 13:47:09 Patient TargetsNo targets recorded. Patient InstructionsNo instructions recorded. Reason for Referral Manager Film Referral for Pa lpitations Referring Physician: Pam Lester, Family Medicine, Encounter Date: 02/26/2025 Results Created Date Observation Date Name Description Value Unit Range Abnormal Flag Note LastModifiedBy Organization Detail LastModifiedTime 09/02/2009/02/2023 COLOG UARD cologuard result reportable Negati ve negati ve normal NEGAT BELA TEST RESUL T. A negat bela Colog uard resul t indic ates a low likel ihood that a color ectal cance r (CRC) or advan minnie adeno ma (duncan omato us polyp s with more advan minnie pre-m align ant featu res) is prese nt. The chanc e that a perso n with a negat bela Colog uard test has a color ectal cance r is less than 1 in 1500 (nega tive predi ctive value >99.9 %) or has an advan minnie adeno ma is less than 5.3% (nega tive predi ctive value 94.7% ). These data are based on a prosp ectiv e cross -sect ional study of 10,00 0 indiv idual s at [place] [facility] risk for color ectal cance r who were scree emma with both Colog uard and colon oscop y. (Natasha Conteh et al, N Engl J Med 2014; 370(1 4):12 86-12 97) The nikita l value (refe rence range ) for this assay is negat bela. COLOG UARD RE-SC REENI NG RECOM MENDA TION: Perio dic color ectal cance r scree renan is an impor tant part of preve ntive healt hcare for asymp tomat ic indiv idual s at [facility] risk for color ectal cance r. Follo wing a negat bela Colog uard resul t, the Ameri can Cance r Socie ty and U.S. Multi -Soci ety Task Force scree renan guide lines recom mend a Colog uard re-sc hai george inter tony of 3 years . Refer ences : Karo can Cance r Socie ty Guide line for Color ectal Cance r Scree renan: https ://nancy w.can cer.o rg/ca ncer/ colon -rect al-ca ncer/ detec tion- diagn osis- stagi ng/ac s-rec ommen datio ns.ht ml.; Fredy GARDNER, Zaki BANG, Linda EdwardsK, Color ectal Cance r Scree renan: Recom menda tions for Physi cians and Patie nts from the U.S. Multi -Soci ety Task Force on Color ectal Cance r Scree renan , Partha medina y 2017; 112:1 016-1 030. TEST DESCR IPTIO N: Zarephath site algor ithmi c ninoska sis of stool DNA-b iomar kers with hemog lobin immun oassa y. Quant itati ve value s of indiv idual bioma rkers are not repor table and are not assoc iated with indiv idual bioma rker resul t refer ence range s. Colog uard is inten ded for color ectal cance r scree renan of adult s of eithe r sex, 45 years or older , who are at [facility] for color ectal cance r (CRC) . Colog uard has been appro drea for use by the U.S. FDA. The perfo rmanc e of Colog uard was estab lishe d in a cross secti onal study of [facility] adult s aged 50-84 . Colog uard perfo rmanc e in patie nts ages 45 to 49 years was estim ated by sub-g roup ninoska sis of near- age group s. Colon oscop ies perfo rmed for a posit bela resul t may find as the most clini enedelia signi fican t lesio n: color ectal cance r [4.0% ], advan minnie adeno ma (incl uding sessi le missy esteban polyp s great er than or equal to 1cm diame ter) [20%] or non- advan minnie adeno ma [31%] ; or no color ectal neopl jaxon [45%] . These estim ates are deriv ed from a prosp ectiv e cross -sect ional scree renan study of 0 indiv idual s at [facility] risk for color ectal cance r who were scree emma with both Colog uard and colon oscop y. (Natasha Conteh et al, N Engl J Med 2014; 370(1 4):12 86-12 97.) Colog uard may produ ce a false negat bela or false posit bela resul t (no color ectal cance r or preca ncero us polyp prese nt at colon oscop y follo w up). A negat bela Colog uard test resul t does not guara ntee the absen ce of CRC or advan minnie adeno ma (pre- cance r). The curre nt Colog uard scree renan inter tony is every 3 years . (Amer ican Cance r Socie ty and U.S. Multi -Soci ety Task Force ). Colog uard perfo rmanc e data in a 0 patie nt pivot al study using colon oscop y as the refer ence metho d can be acces sed at the follo wing locat ion: www.e xactl abs.c om/re cali . Addit ional descr iptio n of the Colog uard test proce ss, warni ngs and preca ution s can be found at www.c nela scruggsd.c om. Not Available [employer] (Cologuard Orders Only) [address], [place], [address], 09/08/2023 22:16:59 10/16/19 24 10/16/2023 rapid flu (A+B) Flu negati ve Not Available [address], [address], 10/16/2023 13:52:22 10/16/19 24 10/16/2023 rapid flu (A+B) Type Both A & B Not Available [address], [place], [address], 10/16/2023 13:52:22 01/10/20 24 01/11/2024 TSH+F REE T4 TSH 3.330 uIU/m L 0.450- 4.500 Not Available [facility] ([facility]) [address] [place], [address], 01/17/2024 12:08:46 01/10/20 24 01/11/2024 TSH+F REE T4 T4,free(dire ct) 0.99 NG/dL 0.82-1 .77 Not Available [facility] ([facility]) [address] [place], [address], 01/17/2024 12:08:46 01/10/20 24 01/11/2024 IRON AND TIBC iron bind.cap.(TI BC) 329 ug/dL 250-45 0 Not Available [facility] ([facility]) [address] [place], [address], 01/17/2024 12:08:47 01/10/20 24 01/11/2024 IRON AND TIBC UIBC 225 ug/dL 131-42 5 Not Available [facility] ([facility]) [address] [place], [address], 01/17/2024 12:08:47 01/10/20 24 01/11/2024 IRON AND TIBC iron 104 ug/dL 27-159 Not Available [facility] ([facility]) [address] [place], [address], 01/17/2024 12:08:47 01/10/20 24 01/11/2024 IRON AND TIBC iron saturation 32 % 15-55 Not Available [facility] ([facility]) [address] [place], [address], 01/17/2024 12:08:47 01/10/20 24 01/11/2024 FSH AND LH LH 27.6 mIU/m L Adult Femal e Range Folli cular phase 2.4 - 12.6 Ovula tion phase 14.0 - 95.6 Lutea l phase 1.0 - 11.4 Postm enopa usal 7.7 - 58.5 Not Available [facility] ([facility]) [address] [place], [address], 01/17/2024 12:08:47 01/10/20 24 01/11/2024 FSH AND LH FSH 59.2 mIU/m L Adult Femal e Range Folli cular phase 3.5 - 12.5 Ovula tion phase 4.7 - 21.5 Lutea l phase 1.7 - 7.7 Postm enopa usal 25.8 - 134.8 Not Available [facility] ([facility]) [address] [place], [address], 01/17/2024 12:08:47 01/10/20 24 01/11/2024 TESTO STERO NE,FR EE AND TOTAL testosterone 10 NG/dL 4-50 Not Available [facility] ([facility]) [address] [place], [address], 01/17/2024 12:08:48 01/10/20 24 01/17/2024 TESTO STERO NE,FR EE AND TOTAL free testosterone (direct) 0.5 pg/mL 0.0-4. 2 Not Available [facility] ([facility]) [address] [place], [address], 01/17/2024 12:08:48 01/10/20 24 01/11/2024 VITAM IN B12 AND FOLAT E vitamin B12 364 pg/mL 232-12 45 Not Available [facility] ([facility]) [address] [place], [address], 01/17/2024 12:08:48 01/10/20 24 01/11/2024 VITAM IN B12 AND FOLAT E folate (folic acid), serum 9.0 NG/mL >3.0 A serum folat e kamran ntrat ion of less than 3.1 ng/mL is consi dered to repre sent clini arianne defic iency . Not Available [facility] ([facility]) [address] [facility], [place], [address], 01/17/2024 12:08:48 01/10/20 24 01/11/2024 ESTRA DIOL estradiol 6.1 pg/mL Adult Femal e Range Folli cular phase 12.5 - 166.0 Ovula tion phase 85.8 - 498.0 Lutea l phase 43.8 - 211.0 Postm enopa usal <6.0 - 54.7 Pregn efrem 1st trime ster 215.0 - >4300 .0 Nini ECLIA metho dolog y Not Available [facility] ([facility]) [address] [facility], [place], [address], 01/17/2024 12:08:49 01/10/20 24 01/11/2024 VITAM IN D, 25-HY DROXY vitamin D, 25-hydroxy 14.1 NG/mL 30.0-1 00.0 below low normal Vitam in D defic iency has been defin ed by the Insti tute of Medic ine and an Endoc rine Socie ty pract ice guide line as a level of serum 25-OH vitam in D less than 20 ng/mL (1,2) . The Endoc rine Socie ty went on to furth er defin e vitam in D insuf ficie ncy as a level betwe en 21 and 29 ng/mL (2). 1. IOM (Inst itute of Medic ine). 2010. Dieta ry refer ence eileen es for calci um and D. Teresa pascal [place]: The Natio nal [facility] Press . 2. Lisa TELLO, Baron hollis [place], Sharona off-F errar i ROSALES, et al. Evalu ation , treat ment, and preve ntion of vitam in D defic iency : an Endoc rine Socie ty clini arianne pract ice guide line. JCEM. 2010; 96(7) :1911 -30. Not Available [facility] ([facility]) [address] [facility] [place], [address], 01/17/2024 12:08:49 01/10/20 24 01/11/2024 RHEUM ATOID FACTO R (RF) rheumatoid factor (rf) <10.0 IU/mL <14.0 Not Available [facility] ([facility]) [address] [facility] [place], [address], 01/17/2024 12:08:50 01/10/20 24 01/11/2024 SEDIM ENTAT ION RATE- WESTE RGREN sedimentatio n rate-westerg nick 16 mm/HR 0-40 Not Available [facility] ([facility]) [address] [facility], [place], [address], 01/17/2024 12:08:51 01/10/20 24 01/11/2024 PROGE STERO NE progesterone 0.3 NG/mL Folli cular phase 0.1 - 0.9 Lutea l phase 1.8 - 23.9 Ovula tion phase 0.1 - 12.0 Pregn ant First trime ster 11.0 - 44.3 Secon d trime ster 25.4 - 83.3 Third trime ster 58.7 - 214.0 Postm enopa usal 0.0 - 0.1 Not Available [facility] ([facility]) [address] [facility], [place], [address], 01/17/2024 12:08:51 01/10/20 24 01/11/2024 C-DAVID CTIVE PROTE IN, QUANT C-reactive protein, quant 3 mg/L 0-10 Not Available [facility] ([facility]) [address] [facility], [place], [address], 01/17/2024 12:08:52 08/30/20 23 08/27/2023 MAMMO , scree renan, digit al, bilat eral No observ ation record ed. [email or web address] [facility] [address], [place], [address], 08/31/2023 09:49:11 09/07/20 23 09/07/2023 XR, chest No observ ation record ed. [facility] [address], [place], [address], 09/07/2023 14:31:43 09/07/20 23 09/07/2023 elect araceli rabago am No observ ation record ed. [facility] [address], [place], [address], 09/07/2023 14:54:14 Result Notes None recorded. Problems Name Problem SNOMED Code Status Onset Date Resolution Date Notes Provider Name and Address Organization Details Recorded Time Depression screening Active 020 [facility], [place] - [facility] 0 14:30:35 Vitamin D deficiency 89175844 Active 023 Pam Trevon, FIRE ALARM INSPECTOR [address], [place], [address], [place] - [facility] 3 15:08:14 Problem [...] [facility] 07/01/2019 14:51:27 section completed Carmen Contreras [place] - [facility] 07/01/2019 14:51:29 procedure on wrist completed Carmen Contreras [place] - [facility] 07/01/2019 14:51:41 procedure on lymph node completed Carmen Contreras [place] - [facility] 07/01/2019 14:51:59 lithotripsy completed Carmen CARRANZA - [facility] 07/01/2019 14:52:04 Unlisted px dentalvlr strux completed Carmen Contreras [place] - [facility] 07/01/20 14:52:10 Imaging Results None recorded. Procedure Notes None recorded. Medical Equipment None Reported. Allergies Allergen ID Allergen Name Allergen Category Reaction Reaction Severity Criticality Documentation Date Start Date Code Code System Note Provider Name and Address Organization Details Recorded Time 801969 Product containin g penicilli n (product) medicatio n encephali tis moderate high 07/01/2019 69655 8001 SNOMED Shelbie Camargo null, [place] - [facility] 2 14:40:41 Medications Name Sig Start Date Stop [...] propionate 50 mcg/actuati on nasal spray,suspe nsion [place] 1 spray every day by intranasa l [...] Available Not Available Vitals Date Recorded Body height Respiratory rate Body mass index (BMI) Body weight Heart rate Oxygen saturation Oxygen saturation in Arterial blood by Pulse oximetry Body temperature Provider Name and Address Organization Details Last Updated DateTime 4 162.56 cm 18 /min 29.7 kg/m2 74250.4 8 g 96 /min 97 % 97 % 97.8 [degF] Leesa Shi [place] - [facility] 4 13:50:36 Date Recorded Body height Provider Name an d Address Organization Details Last Updated DateTime 01/10/2024 162.56 cm Shelbie Camargo [place] - [facility] 0 01/10/2024 14:44:58 Date Recorded Body height Body mass index (BMI) Body weight Heart rate Oxygen saturation Oxygen saturation in Arterial blood by Pulse oximetry Respiratory rate Systolic blood pressure Diastolic blood pressure Provider Name and Address Organization Details Last Updated DateTime 4 162.56 cm 29.9 kg/m2 32293.0 7 g 90 /min 95 % 95 % 18 /min 112 mm[Hg] 70 mm[Hg] Shelbie Camargo [place] - [facility] 4 16:02:46 Date Recorded Body weight Heart rate Oxygen saturation Oxygen saturation in Arterial blood by Pulse oximetry Respiratory rate Systolic blood pressure Diastolic blood pressure Provider Name and Address Organization Details Last Updated DateTime 5 74092.8 5 g 88 /min 98 % 98 % 18 /min 118 mm[Hg] 64 mm[Hg] Shelbie Camargo [place] - [facility] 5 16:22:41 Date Recorded Body height Body mass index (BMI) Body weight Body temperature Heart rate Oxygen saturation Oxygen saturation in Arterial blood by Pulse oximetry Respiratory rate Systolic blood pressure Diastolic blood pressure Provider Name and Address Organization Details Last Updated DateTime 3 162.56 cm 29.4 kg/m2 29089.3 g 98 [degF] 91 /min 98 % 98 % 18 /min 128 mm[Hg] 74 mm[Hg] Pam Lester, FIRE ALARM INSPECTOR [address], [place], [address], [place] - [facility] 3 11:08:39 Social History Question Answer Notes LastModified by Organizat ion Details LastModified Time Tobacco Smoking Status Current Every Day Smoker [place] - [facility] 07/01/2019 14:49:39 Do You Have An Advance Directive? No [email or web address] Information not available 07/01/2019 Are You Blind Or Do You Have Difficulty Seeing? No [email or web address] Information not available 07/01/2019 Is Blood Transfusion Acceptable In An Emergency? Yes [email or web address] Information not available 07/01/2019 What Is Your Level Of Caffeine Consumption? Occasional [email or web address] Information not available 07/01/2019 How Much Tobacco Do You Chew? None [email or web address] Information not available 07/01/2019 In The 14 [...] Do You Have Serious Difficulty Hearing? No [email or web address] Information not available 07/01/2019 What Type Of Diet Are You Following? REGULAR [email or web address] Information not available 07/01/2019 Which Illicit Or Recreational Drugs Have You Used? None [email or web address] Information not available 07/01/2019 Have You Processed [...] Or The Highest Degree You Have Received? [id number] [email or web address] Information not available 07/01/2019 How Many Days Of Moderate To Strenuous Exercise, Like A Brisk Walk, Did You Do In The Last 7 Days? 1 [email or web address] Information not available 07/01/2019 On Those Days That You Engage In Moderate To Strenuous Exercise, How Many Minutes, On Average, Do You Exercise? 1 Information not available 07/01/2019 Have There Been Any Changes To Your Family Or Social Situation? No Information no t available 10/26/2022 How Hard Is It For You To Pay For The Very Basics Like Food, Housing, Medical Care, And Heating? 1 [email or web address] Information not available 07/01/2019 What Is The Fluoride Status Of Your Home? Unknown Information not available 10/26/2022 Have You Recently Or Are You Planning To Travel To An Area With Zika Virus? No Information not available 08/06/2023 Live Alone Or With Others? With Others [email or web address] Information not available 07/01/2019 Do You Have A Medical Power Of Ice Grinder? No Information not available 10/26/2022 What Was The Date Of Your Most Recent Tobacco Screening? 02/26/2025 Information not available 02/26/2025 How Many Children Do You Have? 2 [email or web address] Information not available 07/01/2019 What Is Your Current Pack Years? [email or web address] Information not available 10/26/2022 Performs Monthly Self-breast Exam? Yes Information no t available 07/01/2019 What Is Your Relationship Status? [email or web address] Information not available 07/01/2019 Seat Belts Used Routinely Yes [email or web address] Information not available 07/01/2019 Are You Sexually Active? Yes [email or web address] Information not available 07/01/2019 Do You Have Smoke And Carbon Monoxide Detectors In Your Home? Yes Information not available 10/26/2022 At What Age Did You Start Smoking Tobacco? 13 Information not available 10/26/2022 How Much Tobacco Do You Smoke? 1 PPD [email or web address] Information not available 07/01/2019 Do You Use Sunscreen Routinely? Yes [email or web address] Information not available 07/01/2019 How Many Years Have You Smoked Tobacco? 34 Information not available 10/26/2022 Do You Have Difficulty Walking Or Climbing Stairs? No [email or web address] Information not available 07/01/2019 Sex: Female Functional [...] is your level of alcohol consumption? Occasional [email or web address] Information not available 07/01/2019 Are you currently employed? Yes [email or web address] Information not available 07/01/2019 Do you have transportation difficulties? No Information not available 10/26/2022 Are you able to walk? YESWOREST [email or web address] Information not available 07/01/2019 Do you have difficulty doing errands alone? No [email or web address] Information not available 07/01/2019 Are you able to care for yourself? 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 No [email or web address] Information not available 07/01/2019 What is your exercise level? None [email or web address] Information not available 07/01/2019 Mental Status Question Answer Note LastModified by Organization D etails LastModified Time Do you feel stressed (tense, restless, nervous, or anxious, or unable to sleep at night)? 1 [email or web address] Information not available 07/01/2019 Do you have difficulty concentrating, remembering or making decisions? No [email or web address] Information no t available 07/01/2019 Family History Relationship Description Onset Age of this Age Resolved Age Notes LastModified by Organization Details LastModified Time Mother Malignant tumor of breast [email or web address] Not available 2018 14:48:41 Mother Hypertensive disorder [email or web address] Not available 2018 14:48:54 Maternal Grandmother Diabetes mellitus [email or web address] Not available 2018 14:49:12 Father Cerebrovascu lar accident [email or web address] Not available 04/2019 14:49:27 Medical History Condition [...] Obesity N Vision or Eye Problems N Restless Leg Syndrome N Arthritis N Polyps N Infertility N Carpal Tunnel [...] Bladder or Kidney Problems N Fracture N Schizophrenia N Panic Disorder N Concussion N Spina Bifida N Osteoarthritis N Parkinson's Disease N Disc Protrusion N STI N Esophagitis N Angina N Thyroid Problems N GI Problems N ADD/ADHD N Anemia N Multiple Sclerosis N Abnormal PAP N Lumbago N Mental Illness N Psychiatric Illness N Ovarian Cancer N Diabetes N Degenerative Disc Disease N Seizures/Epilepsy N Syncope N Hyperlipidemia N Insomnia N Eczema N Abuse/Domestic Violence N Attention Deficient Disorder N Dementia N Ulcerative colitis N Cerebrovascular Disease N Depression N Guillain-[place] N Sleep Apnea N Aneurysm N Bronchitis N Heart Disease N Suicidal Ideation N Pre-Eclampsia N Hypertension N Osteoporosis N Gynecological History Statement/Question Response [...] 30 mcg/0.3 mL dose 06/26/2022 completed Shelbie Raman null, [place] - [facility] 08/11/2022 14:01:24 COVID-19, mRNA, LNP-S, PF, 30 mcg/0.3 mL dose 10/11/2020 completed Shelbie Raman null, [place] - [facility] 08/11/2022 14:01:24 COVID-19, mRNA, LNP-S, PF, 30 mcg/0.3 mL dose 11/01/2020 completed Shelbie Raman null, [place] - [facility] 08/11/2022 14:01:24 Past Encounters Encounter ID Performer Location Encounter Start Date Encounter Closed Date Diagnosis/Indication Diagnosis SNOMED-CT Code Diagnosis ICD10 Code Diagnosis Note [id number] DO Lakeisha [place] [employer] [address] [place] [address] [place] [id number] 07/01/2019 14:10:02 07/01/2019 15:59:07 Body mass index 25-29 - overweight 209687970 Z68.28 Abnormal perimenopausal bleeding 687605362 N92.4 [id number] DO Lakeisha [place] [employer] [address] [place] [address] [place] [id number] 12/01/2019 15:08:45 12/01/2019 17:02:04 Depression screening [id number] Z13.89 Screening for malignant neoplasm of cervix 223594625 Z12.4 Screening mammography 24 374396 Z12.31 Abnormal perimenopausal bleeding 735152187 N92.4 Tobacco user 212757695 Z 72.0 Encouraged smoking cessation Gynecologi c examination 33509235 Z01.734 [id number] Pam Lester APRN [address] [address] 05/26/2022 14:11:55 05/26/2022 14:56:56 Acute bronchitis 62112460 J20.9 if no improvemen t return or go to edstop smoking [id number] Pam Clevelandan, [address] [address] 08/11/2022 13:45:56 08/11/2022 14:31:43 Acute bronchitis 60895340 J20.9 if no improvemen t return or go to edstop smoking [id number] [facility] Trevon[address] [address] 09/29/2022 13:49:59 09/29/2022 14:24:40 Pain of right elbow joint [id number] 1344071 M25.521 Pain of ri ght shoulder joint [id number] 5861418 M25.511 if no improvemen t will need mri [id number] [facility] [address] 10/02/2022 08:48:17 10/02/2022 09:28:59 Acute right otitis media 304562149 H66.91 [id number] [facility] Megha[address] [address] 10/26/2022 13:00:13 10/26/2022 14:10:12 Acute upper respiratory infection 32520724 J06.9 no sign of a bacterial infection. likely viral. viruses can take 7-14 days to run their course. nasal saline and bulb syringe to remove nasal drainage to help with congestion . monitor temp. Tylenol or Motrin as needed for pain or fever. encourage fluids, water, Gatorade, power aide, Pedialyte if /tod dler/child warm salt water gargles warm fluids sore throat lozenges sleep elevated humidifier /vaporizer follow up immediatel y for new or worsening symptoms or no noticeable improvemen t over the next 48-72 hours [id number] [facility] [address] [address] 08/06/2023 14:24:12 08/06/2023 15:02:15 Screening mammography of bilateral breasts [id number] 10947 Z12.31 Screening for malignant neoplasm of colon 081329275 Z12.11 Acute maxi llary sinusitis 12739505 J01.00 Menopausal flushing 1984 86578 N95.1 Fatigue 73209199 R53.83 Vitamin D deficiency 347 92839 E55.9 Muscle pain 73816274 M79 .10 [id number] Pam Lester [address] [address] 08/13/2023 09:41:48 08/13/2023 10:22:27 Acute upper respiratory infection 54601489 J06.9 no sign of a bacterial infection. likely viral. viruses can take 7-14 days to run their course. nasal saline and bulb syringe to remove nasal drainage to help with congestion . monitor temp. Tylenol or Motrin as needed for pain or fever. encourage fluids, water, Gatorade, power aide, Pedialyte if /tod dler/child warm salt water gargles warm fluids sore throat lozenges sleep elevated humidifier /vaporizer follow up immediatel y for new or worsening symptoms or no noticeable improvemen t over the next 48-72 hours [id number] [facility] [address] [address] 10/16/2023 13:39:31 10/16/2023 14:19:43 Acute maxillary sinusitis 62538961 J01.00 [id number] [facility] [address] [address] 01/10/2024 14:10:42 01/10/2024 14:59:54 Menopausal syndrome 646829680 N95.1 [id number] [facility] [address] [address] 02/25/2024 15:24:43 02/25/2024 16:38:38 Acute left otitis media 796790125 H66.92 Ordered zithromax to take for 5 days if condition worsens instructed to schedule follow up. Chronic ob structive pulmonary disease 85453090 J44.9 Ordered albuterol inhaler, if patient returns and states they are using albuterol inhaler and needs a refill from using frequently then will order PFTs. [id number] Pam Lester APRN [address] [address] 02/26/2025 16:04:46 02/26/2025 16:49:48 Palpitations 30835217 R00.2 Pain of mu ltiple joints 37887598 M25.50 Numbness of face 9145136 09 R20.0 Obesity 462173967 E66.9 Dyspnea 874723909 R06.02 Seasonal allergy 3955524 04 J30.2 [id number] Pam Lester APRN [address] [address] 03/02/2025 07:54:53 03/02/2025 08:15:34 Palpitations 46353997 R00.2 Health Concerns Section Related Observation LastModified by Organization Detai ls LastModified Time None Recorded Concern Status LastModified by Organization Details LastModified Time None Recorded Advance Directives Directive N: Payers Insurance Date Sequence Insurance Name Policy Number Policy Lara Covered Member ID Lara Member ID Guarantor Name 09/29/2022 1 JASMIN-DILLON (PPO) [id number] Ryan Monte [id number] Jaimee Monte 12/01/2019 1 VANDANA Monte [id number] sunny Monte 05/26/2022 1 [facility] [employer] [facility] - [place] (PPO) [id number] Jaimee Monte [id number] Jaimee Monte 02/25/2025 1 JASMIN-DILLON (PPO) [id number] 1 Ryan Monte [id number] Jaimee Monte Notes Date Note Type Note Provider Name and Address Organization Details Recorded Time 08/13/2023 text/html 48 yr old female presents for cough, clear nasal drainage, sinus pressure and tenderness. Pam Lester APRN [address], [place], [address], [place] - [facility] 08/13/2023 11:09:51 10/16/2023 text/html 48 year old fema le who presents to the office today with concerns ofheadache, cough, green nasal drainage, bilateral ear painnegative covid test this morning at work Emilymadison Lester APRN [address], [place], [address], [facility] - [facility] 10/16/2023 14:20:23 01/10/2024 text/html 48 yr old female presents for labs. Shelbie lawson, [place] - [facility] 01/10/2024 14:48:28 02/25/2024 text/html 48 yr old female presents for bilateral ear pain runny nose, sneezing, and requesting an inhaler due to soa in am. Pam Lester APRN [address], [place], [address], [facility] - [facility] 02/25/2024 16:51:20 02/26/2025 text/html 49 yr old female presents with joint pain, allergies, rapid heartbeat/palpitat ions,sob hot flashes and weight gain.reports mom had a fib, smoker for over 30 yrs, face feels numb when she has hot flashes. denies cpwants to try zepbound Emilymadison Lester APRN [address], [place], [address], [facility] - [facility] 02/26/2025 16:54:43 OBGyn Episode No OBEpisode recorded.
== END 2025-03-02 23:59 | disposition home or self-care (01) ==
LOC: RT 09:00
PROVIDERS: PCP Nurse Practitioner Family; Visit Provider Nurse Practitioner Family
DX: I49.1 Atrial premature depolarization (principal); I49.3 Ventricular premature depolarization
CPT/HCPCS: 93270